=== PATIENT | female | born 1960 | race Caucasian/White ===

== ENCOUNTER → 2023-01-01 10:07 | Outpatient (BNVA) | payer OTHER, SELFPAY | PROVIDERS: PCP Internal Medicine; Visit Provider Internal Medicine ==

== ENCOUNTER 2023-01-09 13:04 | Outpatient (REF) | payer OTHER, SELFPAY ==
--- NOTE | ~2023-01-09 | XR_ITS ---
EXAMINATION: XR LUMBOSACRAL SPINE WITH OBLIQUES CLINICAL INFORMATION: Reason for Exam M48.062 - Spinal stenosis, lumbar region with neurogenic claudication COMPARISON: None TECHNIQUE: 4 views of the lumbar spine FINDINGS: 5 nonrib-bearing lumbar-type vertebral bodies. Vertebral body heights are maintained. Status post L4-L5 posterior spinal fusion with interbody disc spacer fixating grade 1 anterolisthesis. No instability on flexion extension views. Mild to moderate multilevel degenerative disc disease most notably at L5-S1 and L3-L4 with loss of disc space height and facet arthropathy. Paravertebral soft tissues are unremarkable. XR/XR lumbar spine 4V min IMPRESSION: 1. Status post L4-L5 posterior spinal fusion with interbody disc spacer fixating grade 1 anterolisthesis. No instability on flexion extension views. 2. Mild to moderate multilevel degenerative disc disease most notably at L5-S1 and L3-L4 with loss of disc space height and facet arthropathy.
== END 2023-01-09 13:05 | disposition home or self-care (01) ==
LOC: HO.HOSX 13:04
PROVIDERS: PCP Internal Medicine; Visit Provider Neurological Surgery
DX: M48.062 Spinal stenosis, lumbar region with neurogenic claudication (principal)
CPT/HCPCS: 72110

== ENCOUNTER 2023-03-01 06:12 | Day surgery (SDC) | payer OTHER, SELFPAY ==
[2023-02-15 12:12] VITALS: BP 100/60; PULSE 68; RESP 20; O2SAT 97; BMI 34.5
--- NOTE | 2023-02-15 12:28 | P.CONAN_ITS ---
Documented by User: Azul Alexis NP 02/26/23 15:10 HPI - Anesthesia Eval Consult details Narrative: 62yo F for Left L2-3,L3-4 Lumbar Lami/Disc/decom Multi, 03/01/23 Medically optimized Naltrexone for connective tissue disease. Will hold 2 days preop. No recent illness No CP/SOB with swimming and stationary biking. Transverse myelitis causes back spasms if legs are not elevated GERD well controlled with dietary restrictions. [facility] Active Problems Active Problems: All Active Problems (Updated 02/15/23 @ 12:24 by Kisha Montalvo RN) Lumbar spinal stenosis (Acute) Spinal stenosis of lumbar region with neurogenic claudication (Acute) Past Medical History Medical History (Updated 02/15/23 @ 12:47 by Kisha Montalvo RN) Arthritis Back pain Depression Elevated cholesterol GERD (gastroesophageal reflux disease) History of COVID-19 Mixed connective tissue disease Overweight Spinal stenosis of lumbar region with neurogenic claudication Transverse myelitis Family History Family history of problems with anesthesia: No Surgical History Surgical History (Updated 02/15/23 @ 12:10 by Kisha Montalvo RN) History of carpal tunnel release History of lumbar fusion History of pubovaginal sling History of total left knee replacement Hx of arthroscopy of left knee Hx of fusion of cervical spine Hx of meniscectomy of right knee Hx of shoulder surgery History of Problems with Anesthesia: No Social History Social History Are you a primary career and technology education teacher to a significant other at home: No Do you presently have visiting nurse or other home services: No Patient Tobacco Use Status: Never used Tobacco Use of substances other than those prescribed or required for medical reasons: Yes Substance Use Type Other:: edibles-advised to refrain leading up to surgery Substance Use Frequency: Weekly Have you been hit, kicked, punched, or otherwise hurt by someone within the past year? If so, by whom?: No Are you DNR?: No Advance Directives Information Provided: Yes (advised to bring copy DOS) Advance Directives on File: No Recently lost weight without trying: No Eating poorly because of decreased appetite: No Nutrition Risks: No Nutritional Risk Patient : No Poor oral hygiene: No Meds Allergies Allergy/AdvReac Type Severity Reaction Status Date / Time No Known Allergies Allergy Verified 03/01/23 06:26 Home Medications Medication Instructions Recorded Confirmed Last Taken Type cetirizine 10 mg capsule (Zyrtec) 10 mg PO DAILY PRN Allergy Symptoms 01/01/23 02/14/23 03/01/23 05:30 History cholecalciferol (vitamin D3) 50 50 mcg PO DAILY 01/01/23 02/14/23 Unknown History mcg (2,000 unit) capsule duloxetine 60 mg capsule,delayed 60 mg PO DAILY 01/01/23 02/14/23 Unknown History release ezetimibe 10 mg tablet 20 mg PO DAILY 01/01/23 02/14/23 Unknown History magnesium chloride 64 mg 64 mg PO DAILY 01/01/23 02/14/23 Unknown History (magnesium chloride) tablet melatonin 3 mg capsule 3 mg PO BEDTIME PRN Insomnia 01/01/23 02/15/23 Unknown History naltrexone 4.5 mg capsule 4.5 mg PO DAILY 02/15/23 02/15/23 Unknown History Exam Exam Date and Time: February 15, 2023 1228 Height,Weight and Vital Signs: Height 5 ft 6 in Weight 96.887 kg Last Vital Signs Pulse 68 02/15/23 12:12 Resp 20 02/15/23 12:12 BP 100/60 02/15/23 12:12 Pulse Ox 97 02/15/23 12:12 O2 Del Method Room Air 02/15/23 12:12 Pertinent Lab Results Pertinent Lab Results: CBC and BMP from outside facility 02/01/23 all WNL Narrative Narrative: EKG 02/01/23 from outside facility Nml, TWI AvL chronic Airway Mallampati Class: II TM Dist: >3cm Neck ROM: Limited (anterior fusion) Loose/Missing/Broken Teeth: Yes (1 x left lower molar missing, 3 x crowned molars) Heart: RRR Lungs: CTAB Assessment and Plan Assessment Anesthesia Assessment: Anesthesia Plan Discussed and PAT Visit Final Anesthetic Review Family History of Problems with Anesthesia: No History of Problems with Anesthesia: No Documented by User: Marly Matias MD 03/01/23 07:33 [facility] Past Medical History Medical History (Updated 02/15/23 @ 12:47 by Kisha Montalvo RN) Arthritis Back pain Depression Elevated cholesterol GERD (gastroesophageal reflux disease) History of COVID-19 Mixed connective tissue disease Overweight Spinal stenosis of lumbar region with neurogenic claudication Transverse myelitis Surgical History Surgical History (Updated 02/15/23 @ 12:10 by Kisha Montalvo RN) History of carpal tunnel release History of lumbar fusion History of pubovaginal sling History of total left knee replacement Hx of arthroscopy of left knee Hx of fusion of cervical spine Hx of meniscectomy of right knee Hx of shoulder surgery Social History Social History Are you a primary career and technology education teacher to a significant other at home: No Do you presently have visiting nurse or other home services: No Patient Tobacco Use Status: Never used Tobacco Use of substances other than those prescribed or required for medical reasons: Yes Substance Use Type Other:: edibles-advised to refrain leading up to surgery Substance Use Frequency: Weekly Have you been hit, kicked, punched, or otherwise hurt by someone within the past year? If so, by whom?: No Are you DNR?: No Advance Directives Information Provided: Yes (advised to bring copy DOS) Advance Directives on File: No Recently lost weight without trying: No Eating poorly because of decreased appetite: No Nutrition Risks: No Nutritional Risk Patient : No Poor oral hygiene: No Meds Allergies Allergy/AdvReac Type Severity Reaction Status Date / Time No Known Allergies Allergy Verified 03/01/23 06:26 Home Medications Medication Instructions Recorded Confirmed Last Taken Type cetirizine 10 mg capsule (Zyrtec) 10 mg PO DAILY PRN Allergy Symptoms 01/01/23 02/14/23 03/01/23 05:30 History cholecalciferol (vitamin D3) 50 50 mcg PO DAILY 01/01/23 02/14/23 Unknown History mcg (2,000 unit) capsule duloxetine 60 mg capsule,delayed 60 mg PO DAILY 01/01/23 02/14/23 Unknown History release ezetimibe 10 mg tablet 20 mg PO DAILY 01/01/23 02/14/23 Unknown History magnesium chloride 64 mg 64 mg PO DAILY 01/01/23 02/14/23 Unknown History (magnesium chloride) tablet melatonin 3 mg capsule 3 mg PO BEDTIME PRN Insomnia 01/01/23 02/15/23 Unknown History naltrexone 4.5 mg capsule 4.5 mg PO DAILY 02/15/23 02/15/23 Unknown History Exam Height,Weight and Vital Signs: Height 5 ft 6 in Weight 96.887 kg Last Vital Signs Pulse 68 02/15/23 12:12 Resp 20 02/15/23 12:12 BP 100/60 02/15/23 12:12 Pulse Ox 97 02/15/23 12:12 O2 Del Method Room Air 02/15/23 12:12 Vital Signs Temp Pulse Resp BP Pulse Ox O2 Del Method 03/01/23 06:30 96.9 F 54 16 128/78 97 Room Air Airway Mallampati Class: III (Small mouth openinbg) Assessment and Plan Assessment Anesthesia Assessment: Chart Reviewed Final Anesthetic Review NPO: Yes ASA Class: III Final Preanesthetic Review: No Changes in Pt Med Stat, Meds/Allgs Chart Reviewed, Consent Obtained/Reviewed and Anes Risks/Benef Reviewed Patient Risk: Intermediate Procedure Risk: Intermediate Assessment/Block/Sedation in SS: Assess/Block/Sedation-SS Anesthetic Plan Anesthetic Plan: GA Disposition: Standard PACU
[2023-03-01] VITALS (10 sets, daily range): BP systolic 112–135; BP diastolic 61–79; PULSE 54–85; RESP 13–18; TEMP 36.1–36.7; O2SAT 95–99
--- NOTE | ~2023-03-01 | FL_ITS ---
EXAMINATION: XR FLUOROSCOPY WITH IMAGES CLINICAL INFORMATION: Lumbar decompression, left COMPARISON: None available. TECHNIQUE: Fluoroscopy Supervised By: Dr. Ruslan Urias. Fluoroscopy Time: 0.0 minutes. Cumulative Dose: 4.96 mGy. DAP: 1.11 Gycm2. Images: 1. FINDINGS: A single lateral image of lower lumbar spine revealing disc prostheses at L4-L5 disc level and bilateral L4 and L5 pedicle screws with interconnecting rods for posterior stabilization. Mild loss of L3-4 and L5-S1 disc heights with minimal ventral spondylosis is noted. FL/FL guidance in OR IMPRESSION: Fluoroscopy guidance was provided to referring physician during L4-L5 disc fusion
[2023-03-01] MEDS: methocarbamoL 750 MG TABLET PO (06:40)
[2023-03-01] MEDS: Gabapentin 300 MG CAPSULE PO (06:40)
[2023-03-01] MEDS: Lactated Ringers 1,000 ML 100 ML IVCONT (06:57)
--- NOTE | 2023-03-01 07:02 | P.DS_ITS ---
DS: Providers Provider Date of Service: 03/01/23 Primary care physician: Guillaume Vieyra MD DS: Diagnosis Discharge Diagnosis (1) Spinal stenosis of lumbar region with neurogenic claudication: Status: Acute DS: Summary Time Spent with Patient Time attestation: Total time managing care of this patient today ____ minutes. Discharge coordination time: Less than 30 minutes Quality: Safe Use of Opioids Does Pt have an Active Cancer Diagnosis on the Problem List?: No Quality: Stroke Does the patient have a stroke diagnosis?: No Physical Exam Vital Signs: Vital Signs: Last Vital Signs Temp 96.9 F 03/01/23 06:30 Pulse 54 03/01/23 06:30 Resp 16 03/01/23 06:30 BP 128/78 03/01/23 06:30 Pulse Ox 97 03/01/23 06:30 O2 Del Method Room Air 03/01/23 06:30 BMI result Body Mass Index 34.5 Discharge Plan Discharge Patient Disposition: Home, Self-Care Referrals: Guillaume Vieyra MD [Primary Care Provider] - 1 Week Discharge Medications: New ibuprofen 600 mg tablet 600 mg PO Q8H PRN (Reason: pain) Qty: 21 0RF Rx Instructions: Take with food Continued naltrexone 4.5 mg Capsule 4.5 mg PO DAILY duloxetine 60 mg capsule,delayed release(DR/EC) 60 mg PO DAILY ezetimibe 10 mg tablet 20 mg PO DAILY Zyrtec 10 mg capsule 10 mg PO DAILY PRN (Reason: Allergy Symptoms) cholecalciferol (vitamin D3) 50 mcg (2,000 unit) capsule 50 mcg PO DAILY magnesium chloride 64 mg magnesium tablet 64 mg PO DAILY melatonin 3 mg capsule 3 mg PO BEDTIME PRN (Reason: Insomnia) Discharge Orders: Discharge Order (Routine); Ordered 03/01/23 Ordered By: Aston Tapia Diet: Advance to usual diet Activity on Discharge: As tolerated Stand Alone Forms: Patient Portal Discharge page Activity Restrictions/Additional Instructions: After your spinal surgery we ask you to observe the following restrictions/guidelines: Activity: It is normal to feel some discomfort as you increase your activity, but that will improve with time. We ask you avoid heavy lifting or acitivities that cause pain. As a general rule, 8lbs is a safe limit for lifting right after surgery. Walk as much as you feel comfortable but not to exhaustion. You will feel extra tired the first few days after surgery. Stay well hydrated. It is OK to walk up and down stairs You may return to driving when you are off narcotics (such as vicodin, oxycodone, dilaudid, etc), and you are back to normal functional capacity. If you have any concerns please check with office before driving. Return to work is specific to each patient and each surgery, so please speak w ith your doctor/PA at first follow up. Please bring paperwork such as FMLA at that time if you need it filled out. Medications: We will give you a short supply of narcotics after surgery (usually one weeks worth). If you need more please call the office but do not use more than prescribed. You will need to give our office 48 hours notice if you need narcotics refilled and we do not fill narcotics on weekends or evenings. If you are on a narcotic, it is a good idea to take a stool softener such as colace or senna to avoid constipation If you take blood thinner such as aspirin, Plavix, Coumadin, Effient, Eliquis etc for conditions such as Afib, DVT, Pulmonary embolus, coronary disease, stents etc please speak with your surgeon about specific details as to when you can resume these medications. You can resume NSAIDs on post op day 1 (eg: Motrin, Naproxen, etc). Follow up: Please call the office, , after surgery to arrange a 3 week follow up for wound check. Wound Care: You may remove your dressing on the first day after surgery. You may leave open to air. Please do not remove the steri strips underneath. they will fall off on their own in one week. IT IS NORMAL FOR THE WOUND TO OOZE OR BE BLOODY FOR A FEW DAYS AFTER SURGERY. IF THIS HAPPENS JUST PLACE NEW DRESSING OVER IT TO AVOID STAINING CLOTHES. You may shower on post op day # 1 We ask that you do not let the water soak the wound. If it does get wet, just towel dry lightly. Please do not scrub your incision or place any type of chemical/ointment on the wound. No tub baths, pools or jacuzzis for one month. If you have any leaking or redness from your wound, or fevers, please call office. Discharge Date/Time: 03/01/23 13:11
--- NOTE | 2023-03-01 07:06 | MHC.SHP ---
Pre-Procedural Eval Section A Date of Service: 03/01/23 The patient is an INPATIENT: No The History & Physical has been completed within 30 days and I have reviewed it.: No Section B Chief Complaint: Spinal stenosis, lumbar region with neurogenic cla Details of Present Illness: bilateral legpain Relevant Family History (Specify if Yes): No Relevant Social History: None Present Medications: see Short Stay Collaborative assessment Medical History: No relevant PMH History of Previous Operations: No relevant previous surgery Allergies: Allergies Allergy/AdvReac Type Severity Reaction Status Date / Time No Known Allergies Allergy Verified 03/01/23 06:26 Review of Systems Sugical H&P ROS: Negative: Constitution, Cardiovascular, Respiratory, Neurological, Psychiatric, Hem-Onc, Allergic/Immunologic, Gastrointestinal, Genitourinary, Musculoskeletal, Integumentary, Endocrine and Eyes/Ears/Nose/Throat Exam Surgical H&P Exam: Not Evaluated: HEENT, Not Evaluated: Heart, Not Evaluated: Lungs, Not Evaluated: Extremities, Not Evaluated: Abdomen, Not Evaluated: Skin and Not Evaluated: Neurological Plan Diagnosis/Plan: Unchanged I have reviewed the history and physical and performed a pertinent physical examination on my patient. No changes have occurred unless specified. L2-3, L3-4 laminotomy, left side approach Time Spent With Patient Time: Total time managing care of this patient today ____ minutes.
--- NOTE | 2023-03-01 12:45 | W.PM.OPN ---
Operative Note Operative Note Date of Service: 03/01/23 Narrative: Preoperative Diagnosis: L2-3 and L3-4 spinal stenosis Operation: L2-3 and L3-4 bilateral Laminotomy, Partial facetectomy and foraminotomy with use of microscope Consent Informed Consent was obtained for this operation. I have explained the nature, purpose and benefits of the operation. I have discussed the risks and benefit of the operation including possible complications or adverse events with patient/family. Alternative(s) were discussed with the patient with their relative benefits and risks as well as the consequences of not accepting the operation were included in obtaining consent. Surgeon: ISAAK MANCILLA MD, PHD Procedure Assisted By: Aston Tapia, Tang Description of Procedure Patient's of neurogenic claudication. An MRI shows moderate spinal stenosis at L2-3 and L3-4.. The patient was offered a decompression. The procedure complications were explained. The patient was consented. The patient was brought to the operating room and endotracheally intubated. The patient was turned in prone position on the Ralph frame. Prep and drape was done followed by timeout. A mid lumbar incision was made followed by release of the paravertebral muscle on the left side to expose the L2, L3 and L4 laminae and L2-3 and L3-4 facet joints. An intraoperative x-ray was obtained to confirm the correct level. The microscope was brought in. The high-speed drill was used to do a left L2-3 laminotomy until flavum ligament was reached. a 2. Kerrison was used to expand the laminotomy near flush to the pedicles and to include a partial facetectomy. The flavum and was opened and resected with a 3. Kerrison to decompress the underlying thecal sac. The flavum ligament was removed from the lateral recess to decompress the exiting left L3 nerve roots. The patient was turned to the contralateral side. The spinous process was undercut and in this manner I was able to decompress the contralateral side by removing flavum ligament covering the exiting L3 nerve root. A long nerve hook could be easily passed along the medial side of the pedicles as a sign of adequate decompression. A similar procedure was done for the L3-4 level. Again the left side was done 1st to decompress the left L4 nerve root and then the patient was turned contralaterally to decompress the contralateral side. The microscope was removed. Hemostasis was done. The physician property management assistant close the incision in 2 layers. Steri-Strips were used to approximate incision. An OpSite with Tegaderm was used to cover the incision. All sponge needle counts were correct. Patient was extubated and transported in stable is to recovery room. Anesthesia: General Estimated Blood Loss (ml): 70 mL Complications: None Duration of Surgery: 2 hours Postoperative Plan: Discharge to home
== END 2023-03-01 13:11 | disposition home or self-care (01) ==
PROVIDERS: PCP Internal Medicine; Visit Provider Neurological Surgery
PROC: (CPT 63047; principal; 2023-03-01 07:30)
DX: M48.062 Spinal stenosis, lumbar region with neurogenic claudication (principal); Z98.1 Arthrodesis status
CPT/HCPCS: 63047; 63048; J0131; J0690; J1100; J1170; J1885; J2250; J2370; J2371; J2405; J3010

== ENCOUNTER → 2023-03-01 06:12 | Outpatient (BNV) | payer OTHER, SELFPAY | PROVIDERS: PCP Internal Medicine; Visit Provider Physician Assistant | DX: M48.062 Spinal stenosis, lumbar region with neurogenic claudication (principal) | CPT/HCPCS: 63047; 63048; 99024 ==

== ENCOUNTER 2023-03-28 13:17 | Outpatient (AMB) | payer OTHER, SELFPAY ==
--- NOTE | 2023-03-28 13:46 | HO.SPINEOV ---
Intake Intake Visit Reasons: Post op Intake Note: Ms. Shine is here today for her 1st post-op visit. 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 On?03/28/2023,?I?saw?for?postoperative?visit?Chanelle?Fátima. ?She?underwent?an?L2-3?and?L3-4?lumbar?decompression?for?bilateral?neck?pain?for?weeks?ago.??The?bilateral?leg?pain?resolved.??The?original?back?pain?persists.??She?is?happy?with?the?current?outcome.? On?exam:??Incision?is?healed. In?summary,?the?patient?recovered?well?from?her?lumbar?decompression.??She?has?no?limitations.??She?will?visit?me?on?a?p.r.n.?basis.?? Ruslan?Bridgett??MD,?PhD Spine?Fellowship?Trained?Neurosurgeon Director,?[facility]? [facility]? Coding Diagnoses
--- NOTE | 2023-03-28 13:57 | HO.SPINEOV ---
Intake Intake Visit Reasons: Post op Allergies No Known Allergies Allergy (Verified 03/01/23 06:26) Assessment & Plan Assessment & Plan (1) Spinal stenosis of lumbar region with neurogenic claudication: Comment: Dear colleague Thank you for referring Chanelle Shine to the office today with a chief complaint of bilateral leg pain. HPI: This 62-year-old female previously underwent an L4-5 lumbar fusion in 2012 for back pain and neurogenic claudication. The leg pain disappeared but the back pain persisted with walking and standing. Approximately 6 months ago she developed intermittent bilateral leg pain radiating down her posterior thighs. The symptoms progressed to a constant radiating pain. She was seen at [facility] will radiate thought she was a good candidate for a Vertiflex or MILD. She has talked Dr. Jules, for to me after reviewing the MRI imaging that showed severe L3-4 spinal stenosis and moderate stenosis at L2-3. She denies weakness. Her back pain is unchanged. Bending forward is the best position for the patient. She is taken anti inflammatory drugs and CBD gummies at night for pain control, and has tried a course of physical therapy. PMH: Transverse myelitis, bilateral carpal tunnel release, right shoulder surgery, cervical fusion C5-6, rotator cuff repair Social history: Nonsmoker. Medications: Ezetimib, Naltrexone, duloxetine, arthrosis then, melatonin Allergies: NKDA Physical Exam: Pleasant female a constantly rubs her left posterior thigh. There are no deformities of the spine. Straight leg raise is negative. Motor exam is grossly intact. Subjective old paresthesias of the lower extremities Radiological Studies: MRI done at [facility] of 09/04/2022 show status post L4-5 lumbar fusion and severe adjacent spinal stenosis at L3-4 and moderate stenosis at L2-3. A standing x-ray with flexion-extension imaging shows no signs of instability. Impression/Plan: This 62-year-old female who is suffering from progressive bilateral lumbar radiculopathy associated with severe L3-4 and moderate L2-3 stenosis. She denies a significant uptake in her back pain. Dynamic x-ray showed no signs of instability. We discussed therapeutic options. I would like to offer the least invasive procedure to treat the bilateral leg symptoms. I offered her a L2-3 and L3-4 laminotomy, left side approach. She is aware that a fusion surgery will be necessary if the laminotomy fails. Thank you for allowing me to participate in your patients care. total time spent was 50 minutes in counseling ,coordination of plan, personal review of imaging, surgical decision making and subsequent plan Ruslan Urias MD, PhD Spine Fellowship Trained Neurosurgeon Director, [facility] Code(s): M48.062 - Spinal stenosis, lumbar region with neurogenic claudication Plan Dear?colleague,? On?03/28/2023,?I?saw?for?postoperative?visit?Chanelle?Droescher. ?She?underwent?an?L2-3?and?L3-4?lumbar?decompression?for?bilateral?neck?pain?for?weeks?ago.??The?bilateral?leg?pain?resolved.??The?original?back?pain?persists.??She?is?happy?with?the?current?outcome.? On?exam:??Incision?is?healed. In?summary,?the?patient?recovered?well?from?her?lumbar?decompression.??She?has?no?limitations.??She?will?visit?me?on?a?p.r.n.?basis.?? Ruslan?Bridgett??,?PhD Spine?Fellowship?Trained?Neurosurgeon Director,?[facility]? [facility]? Coding Level of Care Code Global (79909) Diagnoses Spinal stenosis of lumbar region with neurogenic claudication M48.062
== END 2023-03-28 14:16 | disposition home or self-care (01) ==
PROVIDERS: PCP Internal Medicine; Visit Provider Neurological Surgery
DX: M48.062 Spinal stenosis, lumbar region with neurogenic claudication (principal)
CPT/HCPCS: 99024

== ENCOUNTER → 2023-03-28 13:17 | Outpatient (BNVA) | payer OTHER, SELFPAY | PROVIDERS: PCP Internal Medicine; Visit Provider Neurological Surgery ==